=== PATIENT | male | born 1965 | race African-American/Black ===

== ENCOUNTER 2018-03-30 21:04 | Emergency (ER) | payer BC, MEDICAID ==
[~2018-03-30] VITALS: Ht 193 cm; Wt 86.0 kg
[2018-03-31] MEDS ORDERED: IBUPROFEN 800MG TABLET PO ONE (00:45)
[2018-03-31] MEDS ORDERED: HYDROCODONE/APAP 7.5/325MG 1 TAB TABLET PO ONE (00:45)
[2018-03-31 02:00] VITALS: BP 136/64
== END 2018-03-31 02:39 | disposition home or self-care (01) ==
LOC: ER 22:25
DX: S39.012A Strain of muscle, fascia and tendon of lower back, initial encounter (principal); S70.02XA Contusion of left hip, initial encounter; F17.200 Nicotine dependence, unspecified, uncomplicated; W11.XXXA Fall on and from ladder, initial encounter; Y93.89 Activity, other specified; Y92.89 Other specified places as the place of occurrence of the external cause; Y99.8 Other external cause status
CPT/HCPCS: 72131; 73502; 99284; Z7610